=== PATIENT | female | born 2000 | race Two or more races ===

== ENCOUNTER 2022-10-21 17:55 | Emergency (ER) | payer SELFPAY ==
[~2022-10-21] VITALS: Ht 165.1 cm; Wt 63.5 kg
[2022-10-21 18:07] VITALS: BP 121/70
--- NOTE | 2022-10-21 19:43 | NUR ---
CALLED MOTHER CAMILA, SHE WILL VERIFICATION SPECIALIST PT
--- NOTE | 2022-10-21 19:53 | NUR ---
PARENTS AT BEDSIDE FOR PEDIATRIC MEDICAL ASSISTANT
== END 2022-10-21 20:08 | disposition home or self-care (01) ==
LOC: ER 18:09
DX: F10.129 Alcohol abuse with intoxication, unspecified (principal); V99.XXXA Unspecified transport accident, initial encounter; Y93.89 Activity, other specified; Y92.411 Interstate highway as the place of occurrence of the external cause; Y99.8 Other external cause status; Y90.9 Presence of alcohol in blood, level not specified